=== PATIENT | male | born 1955 | race Caucasian/White ===

== ENCOUNTER → 2018-09-03 | Outpatient (CLI) | payer OTHER | LOC: RAD 16:40 | PROVIDERS: ATTEND Internal Medicine | DX: I82.492 Acute embolism and thrombosis of other specified deep vein of left lower extremity (principal); M79.89 Other specified soft tissue disorders | CPT/HCPCS: 93971 ==

== ENCOUNTER 2018-10-06 09:26 | Emergency (ER) | payer OTHER ==
[~2018-10-06] VITALS: Ht 188 cm; Wt 113.4 kg
[2018-10-06 10:24] LABS: BASOPHILS # (AUTO) 0.1 (0.0-0.1); BASOPHILS % 0.6 % (0.0-1.0); EOSINOPHILS % 0.3 % (0.0-6.0); HEMATOCRIT 46.7 % (38.2-49.6); HEMOGLOBIN 15.2 g/dL (14.0-18.0); LYMPHOCYTES # (AUTO) 0.7 (1.0-3.2); LYMPHOCYTES % 7.4 % (18.0-39.1); MEAN CORPUSCULAR HEMOGLOBIN 27.8 pg (28-32); MEAN CORPUSCULAR HGB CONC 32.5 g/dL (31-35); MEAN CORPUSCULAR VOLUME 85.5 fL (81-99); MONOCYTES # (AUTO) 0.6 (0.2-0.8); MONOCYTES % 6.1 % (4.4-11.3); NEUTROPHILS # (AUTO) 7.6 (2.1-6.9); PLATELET COUNT 295 x10e3/uL (140-360); RED BLOOD COUNT 5.46 x10e6/uL (4.3-5.7); RED CELL DISTRIBUTION WIDTH 12.7 % (11.7-14.4)
[2018-10-06 10:38] LABS: ALBUMIN 3.8 g/dL (3.5-5.0); ANION GAP 14.1 mmol/L (8-16); CALCIUM 9.7 mg/dL (8.4-10.2); CREATININE, SERUM 1.28 mg/dL (0.72-1.25); MAGNESIUM 2.3 MG/DL (1.3-2.1); POTASSIUM 4.1 mmol/L (3.5-5.1)
[2018-10-06] MEDS ORDERED: COLCHICINE 0.6 MG TAB PO NR (11:11)
--- NOTE | 2018-10-06 11:19 | Diagnostic Imaging Report ---
Ankle complete CPT CODE: 77021 HISTORY: Pain, unable to bear weight, no history of trauma TECHNIQUE: Three views right ankle obtained COMPARISON: None. FINDINGS: The distal tibia and fibula appear intact. Ankle mortise remains symmetric. There is mild bimalleolar soft tissue swelling, lateral greater than medial. Small tibiotalar effusion. The calcaneus appears intact with small plantar spur. The visualized portions of the midfoot and forefoot are intact. IMPRESSION: No evidence of acute fracture or dislocation involving the ankle. Soft tissue swelling and joint effusion as described above. Signed by: Dr. Pratibha Santiago MD on 10/06/2018 11:16 AM
[2018-10-06] MEDS ORDERED: HYDROCODONE/APAP 7.5MG-325MG 1 EA TAB PO NR (11:30)
--- NOTE | 2018-10-06 11:42 | NUR ---
VERBAL REPORT GIVEN TO IN[facility] ROY.
[2018-10-06 11:46] LABS: ERYTHROCYTE SEDIMENTATION RATE 25 mm/hr (0-13)
[2018-10-06] MEDS ORDERED: COLCRYS0.6 MG PO (12:24)
[2018-10-06] MEDS ORDERED: TYLENOL WITH C1 EACH PO (12:25)
--- NOTE | 2018-10-06 12:46 | Diagnostic Imaging Report ---
Ankle complete CPT CODE: 98613 HISTORY: Pain, unable to bear weight, no history of trauma TECHNIQUE: Three views right ankle obtained COMPARISON: None. FINDINGS: The distal tibia and fibula appear intact. Ankle mortise remains symmetric. There is mild bimalleolar soft tissue swelling, lateral greater than medial. Small tibiotalar effusion. The calcaneus appears intact with small plantar spur. The visualized portions of the midfoot and forefoot are intact. IMPRESSION: No evidence of acute fracture or dislocation involving the ankle. Soft tissue swelling and joint effusion as described above. Signed by: Dr. Pratibha Santiago MD on 10/06/2018 11:16 AM
== END 2018-10-06 13:09 | disposition home or self-care (01) ==
LOC: ER 09:26
DX: M25.571 Pain in right ankle and joints of right foot (principal); S93.491A Sprain of other ligament of right ankle, initial encounter; M10.071 Idiopathic gout, right ankle and foot; X50.1XXA Overexertion from prolonged static or awkward postures, initial encounter; Y93.01 Activity, walking, marching and hiking; Y99.0 Civilian activity done for income or pay
CPT/HCPCS: 36415; 80053; 83735; 84550; 85025; 85651; 99284

== ENCOUNTER 2018-10-09 15:29 | Emergency (ER) | payer OTHER ==
[~2018-10-09] VITALS: Ht 188 cm; Wt 113.4 kg
[~2018-10-09 15:29] MED LIST: COLCRYS0.6 MG PO; TYLENOL WITH C1 EACH PO
--- OUTSIDE RECORDS SUMMARY | 2018-10-09 15:31 | XMS REPORT ---
Author Author [facility] Address Unknown Phone Unavailable Care Team Providers [facility] [employer] Machine Operator Name Role Phone Rolo BOND Unavailable Unavailable Problems This patient has no known problems. Allergies, Adverse Reactions, Alerts This patient has no known allergies or adverse reactions. Medications This patient has no known medications. Results Test Description Test Time Test Comments Text Results Atomic Results Result Comments ANKLE 3 + VIEWS RIGHT 2018-10-06 11:15:00 [place] [id number] Patient Name: KATLIN TERRAZAS MR #: [id number] : 1955 Age/Sex: 63/M Req #: [id number] Adm Physician: Ordered by: CARLYLE GRIMES RESOLUTION AGENT Report #: [id number] Location: ER Room/Bed: Procedure: [id number] DX/ANKLE 3 + VIEWS RIGHT Exam Date: 10/06/18 Exam Time: 1228 REPORT STATUS: Signed Ankle complete CPT CODE: 35625 HISTORY: Pa in, unable to bear weight, no history of trauma TECHNIQUE: Three views right ankle obtained COMPARISON: None. FINDINGS: The distal tibia and fibula appear intact. Ankle mortise remains symmetric. There is mild bimalleolar soft tissue swelling, lateral greater than medial. Small tibiotalar effusion. The calcaneus appears intact with small plantar spur. The visualized portions of the midfoot and forefoot are intact. IMPRESSION: No evidence of acute fracture or dislocation involving the ankle. Soft tissue swelling and joint effusion as described above. Signed by: Dr. Leigh Santiago MD on 10/06/2018 11:16 AM Dictated By: LEIGH SANTIAGO MD 1242 Transcribed By: NETTA on 10/06/18 1242 COPY TO: CARLYLE GRIMES NP ANKLE 3+ VIEWS LEFT 2018-10-06 11:15:00 [place] [id number] Patient Name: KATLIN TERRAZAS MR #: [id number] : 1955 Age/Sex: 63/M Req #: [id number] [facility] Physician: Ordered by: CARLYLE GRIMES NP Report #: [id number] Location: ER Room/Bed: Procedure: [id number] DX/ANKLE 3+ VIEWS LEFT Exam Date: 10/06/18 Exam Time: 1040 REPORT STATUS: Signed Ankle complete CPT CODE: [id number] HISTORY: Pain , unable to bear weight, no history of trauma TECHNIQUE: Three views right ankle obtained COMPARISON: None. FINDINGS: The distal tibia and fibula appear intact. Ankle mortise remains symmetric. There is mild bimalleolar soft tissue swelling, lateral greater than medial. Small tibiotalar effusion. The calcaneus appears intact with small plantar spur. The visualized portions of the midfoot and forefoot are intact. IMPRESSION: No evidence of acute fracture or dislocation involving the ankle. Soft tissue swelling and joint effusion as described above. Signed by: Dr. Leigh Santiago MD on 10/06/2018 11:16 AM Dictated By: LEIGH SANTIAGO MD 111 Transcribed By: NETTA on 10/06/18 111 COPY TO: CARLYLE GRIMES NP
--- NOTE | 2018-10-09 19:12 | Diagnostic Imaging Report ---
WRIST COMPLETE RIGHT - 3 views HISTORY: Pain. Right wrist injury. COMPARISON: None available. FINDINGS: Bones: Age indeterminate transverse fracture of the distal radius and ulnar styloid. Joints: The joint spaces are well-maintained. Soft tissues: Diffuse soft tissue swelling. IMPRESSION: Age indeterminate transverse fracture of the distal radius and ulnar styloid Signed by: Dr. Renny Sullivan M.D. on 10/09/2018 7:09 PM
--- NOTE | 2018-10-09 19:12 | Diagnostic Imaging Report ---
HAND 3+ VIEWS RIGHT - 3 views HISTORY: Pain. Right wrist injury. COMPARISON: None available. FINDINGS: Bones: Age indeterminate transverse fracture of the distal radius and ulnar styloid. Joints: The joint spaces are well-maintained. Soft tissues: Diffuse soft tissue swelling. IMPRESSION: Age indeterminate transverse fracture of the distal radius and ulnar styloid. Signed by: Dr. Renny Sullivan M.D. on 10/09/2018 7:08 PM
[2018-10-10 04:53] VITALS: BP 138/97
== END 2018-10-09 21:45 | disposition home or self-care (01) ==
LOC: ER 15:29
DX: S52.324A Nondisplaced transverse fracture of shaft of right radius, initial encounter for closed fracture (principal); S52.221A Displaced transverse fracture of shaft of right ulna, initial encounter for closed fracture; W01.0XXA Fall on same level from slipping, tripping and stumbling without subsequent striking against object, initial encounter; Y99.0 Civilian activity done for income or pay; M10.9 Gout, unspecified